=== PATIENT | female | born 1975 | race Caucasian/White ===

== ENCOUNTER → 2023-07-15 10:09 | Outpatient (REF) | payer OTHER, SELFPAY ==
[2023-07-15 12:43] LABS: Free T4 1.44 ng/dl (0.78-2.19)
[2023-07-15 12:57] LABS: TSH 2.68 uIU/ml (0.47-4.68)
== END ==
LOC: REG 10:09
PROVIDERS: ATTENDING PHYSICIAN Internal Medicine Endocrinology, Diabetes & Metabolism; FAMILY PHYSICIAN Family Medicine
DX: E03.9 Hypothyroidism, unspecified (principal)
CPT/HCPCS: 36415; 84439; 84443